=== PATIENT | male | born 1975 | race Caucasian/White ===

== ENCOUNTER → 2025-08-03 08:18 | Outpatient (CLI) | payer OTHER, SELFPAY ==
--- NOTE | 2025-08-03 09:00 | DI.MRI.S_ITS ---
PROCEDURE: MR SHOULDER RT WO CON INDICATIONS: Pain in right shoulder TECHNIQUE: Noncontrast oblique coronal T2 fast spin echo with fat saturation, oblique sagittal T1 spin echo and T2 fast spin echo with fat saturation, axial T1 spin echo and T2 fast spin echo with fat saturation through the shoulder. COMPARISON: None. FINDINGS: Image quality: Excellent. Rotator cuff: Low-grade bursal surface partial-thickness tear involving distal supraspinatus at its insertion on humeral head extending to musculotendinous junction. Distal infraspinatus tendinosis is seen. Low-grade intrasubstance partial- thickness tear involving distal subscapularis is also noted. No full-thickness rotator cuff tendon rupture. Sagittal images demonstrate no significant rotator cuff muscle atrophy. Bones and bursae: No bone marrow contusions or fractures. Mild to moderate acromioclavicular joint osteoarthritic changes are seen. Mild glenohumeral joint osteoarthritis is also seen. Type 2 acromion without os acromiale. Small amount of subacromial subdeltoid bursal fluid, no loose bodies. Capsule and soft tissues: T2 hyperintense signal and fraying involving superior anterior glenoid labrum suggestive of superior anterior labral tear. Tendinosis and low- grade intrasubstance partial-thickness tear involving proximal long head of biceps is seen. IMPRESSION: 1. Low-grade bursal surface partial-thickness tear involving distal supraspinatus extending to musculotendinous junction. Distal infraspinatus tendinosis. Low- grade intrasubstance partial-thickness tear involving distal subscapularis. No full- thickness rotator cuff tendon rupture. 2. [id number] acromioclavicular joint and glenohumeral joint osteoarthritis. No fracture or dislocation. No suspicious intraosseous lesions. Small amount of subacromial subdeltoid bursal fluid, no loose bodies. 3. Finding is suggestive of fairly extensive superior anterior right glenoid labral tear. 4. Tendinosis and low-grade partial-thickness tear involving proximal long head of biceps. Dictated by: Dakota Tolbert M.D. on 08/03/2025 at 11:16 Approved by: Dakota Tolbert M.D. on 08/03/2025 at 11:19
== END ==
PROVIDERS: Referring Provider Student in an Organized Health Care Education/Training Program; Visit Provider Student in an Organized Health Care Education/Training Program
DX: M75.111 Incomplete rotator cuff tear or rupture of right shoulder, not specified as traumatic (principal); M19.011 Primary osteoarthritis, right shoulder; S46.111A Strain of muscle, fascia and tendon of long head of biceps, right arm, initial encounter; M25.511 Pain in right shoulder
CPT/HCPCS: 73221